=== PATIENT | male | born 1960 | race Caucasian/White ===

== ENCOUNTER → 2021-03-23 | Outpatient (CLI) | payer BC ==
--- NOTE | 2021-03-23 14:49 | EST ---
EXERCISE STRESS AGE: 60 SEX: M HT: 5'8" WT: 182 lbs. PROTOCOL: Ernie STAGE: 3 DURATION OF EXERCISE: 7:00 HEART RATE REST: 60 BLOOD PRESSURE REST: 152/85 MAXIMUM HEART RATE ACHIEVED: 135 MAXIMUM BLOOD PRESSURE: 191/75 85% MPHR: 134 100% MPHR: 158 METS: 8.5 INDICATIONS: Dyspnea on exertion. CLINICAL INFORMATION: Baseline EKG revealed normal sinus rhythm without significant ST changes. Patient walked for 7 minutes on a standard Ernie protocol. Achieved a maximal heart rate of 135 beats per minute which is 85% of predicted maximal. He developed fatigue, shortness of breath. EKG did not reveal any ST-segment changes to indicate ischemia. There was a lot of artifact. Upsloping nonspecific ST-segment changes were noted. By EKG criteria, this is a negative stress test with limited exercise capacity. IMPRESSION: 1. Limited exercise capacity. 2. Negative stress test by EKG criteria. MMBRENDA / CLAUDETTEN: [id number] /
== END | disposition home or self-care (01) ==
LOC: RADNMMAIN 08:37
PROVIDERS: ATTEND Physician Assistant
DX: R06.09 Other forms of dyspnea (principal)
CPT/HCPCS: 93017